=== PATIENT | female | born 1995 | race Two or more races ===

== ENCOUNTER 2018-10-09 09:36 | Emergency (ER) | payer MEDICAID ==
[~2018-10-09] VITALS: Ht 167.6 cm; Wt 90.7 kg
[2018-10-09 09:49] VITALS: BP 122/73
[2018-10-09] MEDS ORDERED: Cephalexin 500mg cap ORAL ONE (10:00)
--- NOTE | 2018-10-09 10:43 | Emergency Room Report ---
History of Present Illness General Chief Complaint: Laceration Source: Patient Present Illness HPI Patient punched glass and had a cut which was initially seen and treated with glue. Re-evaluated 2 days ago and an x-ray revealed glass. Told would need ortho or hand surgeon. Came here to get treatment. Pain rated 6/10, aching, more when palpated. No fevers, numbness, decreased strength or ROM. Tetanus UTD. R handed. 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: No Reviewed Nursing Documentation: PMH: Agreed; PSxH: Agreed Nursing Documentation-PMH Past Medical History: No Stated History Review of Systems Constitutional: Denies: fever Musculoskeletal: Reports: see HPI Skin: Reports: see HPI Neurological: Reports: see HPI Hematologic/Lymphatic: Denies: easy bleeding Physical Exam Vital Signs Date Time Temp Pulse Resp B/P (MAP) Pulse Ox O2 Delivery O2 Flow Rate FiO2 10/09/18 09:39 98.1 61 17 122/73 98 Room Air Sp02 EP Interpretation: reviewed, normal General Appearance: well appearing, no apparent distress Head: normocephalic, atraumatic Eyes: bilateral eye normal inspection, bilateral eye PERRL ENT: hearing grossly normal, normal voice, moist mucus membranes Neck: full range of motion, supple Respiratory: no respiratory distress, speaking full sentences Musculoskeletal: gait/station normal, normal range of motion, swelling - medial 1st MCP Neurologic: alert, motor strength/tone normal, sensory intact, normal gait Psychiatric: mood/affect normal Skin: other - glued laceration with palpable FB Medical Decision Making Diagnostic Impression: Primary Impression: Foreign body in subcutaneous tissue Additional Impression: Hand laceration Qualified Codes: S61.421D - Laceration with foreign body of right hand, subsequent encounter ER Course Patient with alleged glass in laceration requesting removal. Consideration for repeat x-rays and removal. She requests hand surgeon to take care of this. Given motrin and Keflex. Contacted Dr. Grullon who is willing to take care of her in his office. Discharged with Rx for Keflex to go to his office. Last Vital Signs Date Time Temp Pulse Resp B/P (MAP) Pulse Ox O2 Delivery O2 Flow Rate FiO2 10/09/18 10:48 97.5 68 20 130/75 100 Room Air Status: improved Disposition: HOME, SELF-CARE - to Dr. Grullon's office Condition: Stable Scripts Cephalexin* (KEFLEX*) 500 Mg Capsule 500 MG ORAL EVERY 6 HOURS, #28 CAP Prov: Tommy Garcia MD 10/09/18 Referrals: NOT CHOSEN IPA/,REFERRING (PCP) Tommy Garcia MD Oct 09, 2018 10:43
[2018-10-09] MEDS ORDERED: CEPHALEXIN500 MG ORAL (10:45)
[2018-10-09 10:48] VITALS: BP 130/75
== END 2018-10-09 10:48 | disposition home or self-care (01) ==
LOC: EMR 09:58
DX: S61.421D Laceration with foreign body of right hand, subsequent encounter (principal); W25.XXXD Contact with sharp glass, subsequent encounter; Y92.89 Other specified places as the place of occurrence of the external cause
CPT/HCPCS: 99284; Z7502